=== PATIENT | male | born 1945 | race Caucasian/White ===

== ENCOUNTER 2021-03-20 06:39 | Day surgery (SDC) | payer MEDICARE, OTHER ==
[2021-03-13 15:43] LABS: BASOPHILS # (AUTO) 0.1 X10'3 (0-0.2); BASOPHILS % (AUTO) 0.9 % (0-1); EOSINOPHILS # (AUTO) 0.3 X10'3 (0-0.9); EOSINOPHILS % (AUTO) 3.3 % (0-6); LYMPHOCYTES % (AUTO) 25.3 % (21-51); MEAN CORPUSCULAR HEMOGLOBIN 29.3 PG (27.0-31.0); MEAN CORPUSCULAR HGB CONC 33.5 g/dL (33.0-36.5); MEAN CORPUSCULAR VOLUME 87.6 FL (78-98); MEAN PLATELET VOLUME 7.9 FL (7.4-10.4); MONOCYTES # (AUTO) 0.8 X10'3 (0-0.9); MONOCYTES % (AUTO) 10.8 % (2-12); NEUTROPHILS # (AUTO) 4.7 X10'3 (1.8-7.7); NEUTROPHILS % (AUTO) 59.7 % (42-75); PRE OP HEMATOCRIT 42.3 % (42.0-52.0); PRE OP HEMOGLOBIN 14.2 g/dL (14.0-17.9); PRE OP PLATELET COUNT 305 X10'3 (140-440); RED BLOOD COUNT 4.83 X10'6 (4.70-6.10); RED CELL DISTRIBUTION WIDTH 13.6 % (11.5-14.5)
[2021-03-13 15:58] LABS: ALBUMIN 3.7 G/DL (3.4-5.0); ALKALINE PHOSPHATASE 68 IU/L (46-116); BLOOD UREA NITROGEN 22 MG/DL (7-18); BUN/CREATININE RATIO 21.4 (5.4-32.0); CALCIUM 9.4 MG/DL (8.5-10.1); CHLORIDE 104 MMOL/L (99-107); CREATININE 1.03 MG/DL (0.60-1.10); PRE OP ALT 21 U/L (30-65); PRE OP ANION GAP 9 (8-16); PRE OP AST 17 U/L (10-37); PRE OP BILIRUB, TOTAL 0.4 MG/DL (0.0-1.0); PRE OP GLUCOSE 97 MG/DL (70-104); PRE OP SODIUM 139 MMOL/L (135-145); TOTAL PROTEIN 7.4 G/DL (6.4-8.2); eGFR 70 ML/MIN
[~2021-03-20] VITALS: Ht 170.2 cm; Wt 74.8 kg
[~2021-03-20 06:39] MED LIST: CHOL100017 PO; LISI-222 PO; cefazolin/dext.iso 2gm/50ml IV ONE; famotidine 20mg tablet PO ONE; ringers solution, lacted 1,000 ML IV SCH
[2021-03-20] MEDS ORDERED: BUPIVAcaine/PF 2.5 mg/ml (0.25%) 30ml vial ONE (06:45)
[2021-03-20 06:50] VITALS: BP 175/77
[2021-03-20] MEDS ORDERED: LIDOcaine 0.5% (5mg/ml) 50ml vial ONE (08:44)
[2021-03-20] MEDS ORDERED: fentaNYL/PF 50MCG/1 ML 2ML syringe ONE (08:47)
[2021-03-20] MEDS ORDERED: midazolam 1 mg/ML 2ml injection ONE (08:49)
[2021-03-20] MEDS ORDERED: propofol inj 20 ML IV ONE (09:13)
[2021-03-20] MEDS ORDERED: ringers solution, lacted 1,000 ML IV SCH (09:20)
[2021-03-20] MEDS ORDERED: morphine 2 MG/ML inj. syringe IV PRN (09:20)
[2021-03-20] MEDS ORDERED: ondansetron/PF 4mg/2ml inj IV PRN (09:20)
[2021-03-20] MEDS ORDERED: proCHLORperazine 10 MG/2 ml inj IV PRN (09:20)
[2021-03-20] MEDS ORDERED: morphine 4 MG/ML inj SYRINge IV PRN (09:20)
[2021-03-20] MEDS ORDERED: meperidine/PF 25mg/ml syringe IV PRN ×3 (09:20)
[2021-03-20 09:36] VITALS: BP 147/75
--- NOTE | 2021-03-20 09:36 | NUR ---
Received from OR via , accompanied by Anesthesiologist DR LOPEZ and report given by Anesthesiolgist.AWAKENS TO VOICE. VITALS STABLE. DRESSING DI. PEDRO PAIN. FINGERS COOL AND PINK.
[2021-03-20 09:46] VITALS: BP 149/79
[2021-03-20 09:56] VITALS: BP 155/85
[2021-03-20 10:06] VITALS: BP 150/82
--- NOTE | 2021-03-20 10:16 | NUR ---
AWAKE AND ORIENTED. VITALS STABLE. DRESSING DI. PEDRO PAIN. HOME WITH HIS AT THIS TIME.
== END 2021-03-20 10:16 | disposition home or self-care (01) ==
LOC: PRE-OP 06:39 → PAS 10:16
PROVIDERS: ATTEND Orthopaedic Surgery Hand Surgery
DX: M18.11 Unilateral primary osteoarthritis of first carpometacarpal joint, right hand (principal); I10 Essential (primary) hypertension; Z98.890 Other specified postprocedural states; Z20.822 Contact with and (suspected) exposure to COVID-19; Z79.899 Other long term (current) drug therapy; Z72.89 Other problems related to lifestyle
CPT/HCPCS: 25310; 25447; 36415; 80053; 82948; 85025; 93005; J0690; J2250; J2704; J3010; J3490; J7030; J7120; U0003; U0005; Z7506; Z7512; A4215; A4618; A7000